=== PATIENT | male | born 1950 | race Caucasian/White ===

== ENCOUNTER 2021-10-25 06:05 | Day surgery (SDC) | payer OTHER ==
[2021-10-18 12:11] LABS: BASOPHILS % (AUTO) 0.3 % (0-1); EOSINOPHILS # (AUTO) 0.2 X10'3 (0-0.9); LYMPHOCYTES # (AUTO) 1.8 X10'3 (1.1-4.8); LYMPHOCYTES % (AUTO) 21.8 % (21-51); MEAN CORPUSCULAR HEMOGLOBIN 30.1 PG (27.0-31.0); MEAN CORPUSCULAR HGB CONC 34.2 g/dL (33.0-36.5); MONOCYTES # (AUTO) 0.7 X10'3 (0-0.9); MONOCYTES % (AUTO) 8.1 % (2-12); NEUTROPHILS # (AUTO) 5.6 X10'3 (1.8-7.7); NEUTROPHILS % (AUTO) 67.8 % (42-75); PRE OP HEMATOCRIT 41.8 % (42.0-52.0); PRE OP HEMOGLOBIN 14.3 g/dL (14.0-17.9); PRE OP PLATELET COUNT 206 X10'3 (140-440); RED BLOOD COUNT 4.74 X10'6 (4.70-6.10); RED CELL DISTRIBUTION WIDTH 13.2 % (11.5-14.5)
[2021-10-18 12:15] LABS: PRE OP PROTIME 10.4 SECONDS (9.0-12.0)
[2021-10-18 12:17] LABS: ALBUMIN 3.3 G/DL (3.4-5.0); ALBUMIN/GLOBULIN RATIO 0.8 (1.1-1.5); ALKALINE PHOSPHATASE 86 IU/L (46-116); BLOOD UREA NITROGEN 13 MG/DL (7-18); BUN/CREATININE RATIO 13.4 (5.4-32.0); CALCIUM 8.3 MG/DL (8.5-10.1); CHLORIDE 109 MMOL/L (99-107); CREATININE 0.97 MG/DL (0.60-1.10); PRE OP ALT 20 U/L (30-65); PRE OP ANION GAP 5 (8-16); PRE OP AST 18 U/L (10-37); PRE OP BILIRUB, TOTAL 0.7 MG/DL (0.0-1.0); PRE OP GLUCOSE 107 MG/DL (70-104); PRE OP POTASSIUM 3.9 MMOL/L (3.4-5.1); PRE OP SODIUM 143 MMOL/L (135-145); TOTAL CARBON DIOXIDE 29.2 MMOL/L (24-32); TOTAL PROTEIN 7.2 G/DL (6.4-8.2); eGFR 77 ML/MIN
[~2021-10-25] VITALS: Ht 175.3 cm; Wt 88.5 kg
[2021-10-25] VITALS (14 sets, daily range): BP systolic 135–151; BP diastolic 70–80
[~2021-10-25 06:05] MED LIST: AMLO5TAB16 PO; AZEL137S4 BOTHNARES; LEVO50TA8 PO; MONT-40 PO; ROSU10TA28 PO; diazepam 5mg tablet PO ONE; famotidine 20mg tablet PO ONE; oxymetazoline 15 ML nasal spray NS SCH; ringers solution, lacted 1,000 ML IV SCH
[2021-10-25] MEDS ORDERED: LIDOCAINE 1%/EPI 1:100,000 inj. 10 ML multi-dose vial ONE (06:47)
[2021-10-25] MEDS ORDERED: cocaine 4% topical solution 4ml bottle ONE (06:47)
[2021-10-25] MEDS ORDERED: mupirocin 2% ointment 22GM ONE (06:48)
[2021-10-25] MEDS ORDERED: oxymetazoline 15 ML nasal spray NS ONE (06:48)
[2021-10-25] MEDS ORDERED: BUPIVAcaine/PF 2.5mg/ml (0.25%) 10ml vial ONE (06:54)
[2021-10-25] MEDS ORDERED: BUPIVACAINE liposomal/PF 13.3 MG/ML vial IM ONE (06:54)
[2021-10-25] MEDS ORDERED: fentaNYL/PF 50MCG/1 ML 2ML syringe ONE ×2 (07:56→09:28)
[2021-10-25] MEDS ORDERED: midazolam 1 mg/ML 2ml injection ONE (07:57)
[2021-10-25] MEDS ORDERED: LIDOcaine 2% (20mg/ml) 5ml vial ONE (07:57)
[2021-10-25] MEDS ORDERED: propofol inj 20 ML IV ONE (07:57)
[2021-10-25] MEDS ORDERED: hydrALAZINE 20mg/ml inj. IV PRN (09:50)
[2021-10-25] MEDS ORDERED: morphine 4 MG/ML inj SYRINge IV PRN (09:50)
[2021-10-25] MEDS ORDERED: ringers solution, lacted 1,000 ML IV SCH (09:50)
[2021-10-25] MEDS ORDERED: ondansetron/PF 4mg/2ml inj IV PRN (09:50)
[2021-10-25] MEDS ORDERED: morphine 2 MG/ML inj. syringe IV PRN (09:50)
[2021-10-25] MEDS ORDERED: labetalol 5mg/ml 20ml inj. IV PRN (09:50)
[2021-10-25] MEDS ORDERED: meperidine/PF 25mg/ml syringe IV PRN ×2 (09:50)
--- NOTE | 2021-10-25 09:51 | NUR ---
Received from OR via , accompanied by Anesthesiologist DR HUTCHISON and report given by Anesthesiolgist. PT PRESENTS WITH 20G RIGHT HAND, VSS. Addendum: 10/25/21 at 0954 by Bernadette Rooney RN, RN Amended: Links added.
[2021-10-25] MEDS ORDERED: salt irrigation nasal spray 45 ML SPRAY NS PRN (10:10)
--- NOTE | 2021-10-25 11:33 | NUR ---
DISCHARGE CRITERIA MET, DISCHARGE INSTRUCTIONS GIVEN, DEMONSTRATES VERBAL UNDERSTANDING. DISCHARGED HOME IN GOOD CONDITION. Addendum: 10/25/21 at 1215 by Bernadette Rooney RN, RN Amended: Links added.
== END 2021-10-25 11:33 | disposition home or self-care (01) ==
LOC: PAS 06:05
PROVIDERS: ATTEND Otolaryngology
DX: J34.2 Deviated nasal septum (principal); J34.3 Hypertrophy of nasal turbinates; J32.8 Other chronic sinusitis; I10 Essential (primary) hypertension; Z20.822 Contact with and (suspected) exposure to COVID-19; Z79.899 Other long term (current) drug therapy; Z79.01 Long term (current) use of anticoagulants; Z96.612 Presence of left artificial shoulder joint; Z98.890 Other specified postprocedural states; Z86.14 Personal history of Methicillin resistant Staphylococcus aureus infection; Z88.5 Allergy status to narcotic agent; Z85.828 Personal history of other malignant neoplasm of skin; Z87.891 Personal history of nicotine dependence; Z72.89 Other problems related to lifestyle
CPT/HCPCS: 30140; 30520; 31254; 31267; 36415; 61782; 70486; 80053; 82948; 85025; 85576; 85610; 85730; 87635; A6402; C9250; C9290; C9803; J2175; J2250; J2704; J3010; J3490; J7030; J7040; J7120; U0003; U0005; Z7506; Z7508; Z7512; A4618; A7000